=== PATIENT | female | born 1965 | race Caucasian/White ===

== ENCOUNTER 2019-12-14 18:03 | Emergency (ER) | payer BC ==
[~2019-12-14] VITALS: Ht 177.8 cm; Wt 112.0 kg
--- NOTE | 2019-12-14 18:15 | NUR ---
PATIENT TO ER #4
[2019-12-14] MEDS ORDERED: ACET-2634 PO (18:24)
[2019-12-14] MEDS ORDERED: LISI5TAB PO (18:24)
[2019-12-14] MEDS ORDERED: HYDR-4272 PO (18:24)
[2019-12-14] MEDS ORDERED: IBUP-1969 PO (18:24)
--- NOTE | 2019-12-14 18:30 | NUR ---
pt arrives from [facility] w/ c/o right ankle pain. pt had right ankle sx one week ago. Arrives w/ increasing right ankle pain 10/06. pt is able to move the toes on the affected foot
[2019-12-14 18:43] VITALS: BP_SYST 151
--- NOTE | 2019-12-14 19:12 | NUR ---
PT LEFT W/OUT BEING SEEN.
--- NOTE | 2019-12-14 19:12 | NUR ---
Shilpa buenrostro in [facility] - 12/14/19 at 1938 by NANCY pt opal, at this time.
[2019-12-14 19:25] VITALS: BP_SYST 151
== END 2019-12-14 19:12 | disposition left against medical advice (07) ==
LOC: SED 18:03
DX: M25.571 Pain in right ankle and joints of right foot (principal); Z53.21 Procedure and treatment not carried out due to patient leaving prior to being seen by health care provider